=== PATIENT | female | born 1945 | race Caucasian/White ===

== ENCOUNTER 2021-01-16 13:00 | Inpatient (IN) ==
[~2021-01-16 13:00] MED LIST: ACETAMINOPHEN 325 MG TABLET PO PRN; CLOPIDOGREL 300 MG TABLET ONE; DEXTROSE 50% 25 GM/50 ML VIAL IV PRN; EPTIFIBATIDE 75 MG/100 ML BOTTLE IV ONE; GLUCAGON 1 MG VIAL IM PRN; HEPARIN 5,000 UNIT/1 ML VIAL ONE; HEPARIN/NACL 0.9% 2 UNITS/ML 1,000 UNIT/500 ML BAG IV ONE; LIDOCAINE 1% 20 ML VIAL ONE; MIDAZOLAM 2 MG/2 ML VIAL ONE; MORPHINE 2 MG/1 ML SYRINGE IV PRN; ONDANSETRON 4 MG/2 ML VIAL IV PRN; fentaNYL 100 MCG/2 ML VIAL ONE
[2021-01-16] MEDS ORDERED: NITROPRUSSIDE 50 MG/2 ML VIAL ONE (13:02)
[2021-01-16] MEDS ORDERED: HYDROmorphone 2 MG/1 ML VIAL ONE (13:12)
[2021-01-16] MEDS ORDERED: NALOXONE 0.4 MG/ML VIAL ONE (13:22)
[2021-01-16] MEDS ORDERED: ROCURONIUM 100 MG/10 ML VIAL IV ONE (13:39)
[2021-01-16] MEDS ORDERED: HEPARIN/NACL 0.9% 2 UNITS/ML 1,000 UNIT/500 ML BAG IV ONE (13:44)
[2021-01-16] MEDS ORDERED: NOREPINEPHRINE 4 MG/4 ML VIAL IV ONE (14:04)
[2021-01-16 14:35] LABS: Basophils # 0.1 10*3/uL (0.0-0.2); Basophils % 0.4 % (0.0-0.8); Eosinophils # 0.2 10*3/uL (0.0-0.87); Eosinophils % 1.2 % (0.00-10.9); Hematocrit 34.2 VOL% (35.7-47.0); Hemoglobin 10.7 GM/DL (12.0-16.0); Immature Granulocytes % 0.7 %; Immature Granulocytes Absolute 0.09 #; Lymphocytes # 1.6 10*3/uL (1.4-4.0); Lymphocytes % 11.5 % (21.3-54.2); Mean Corpuscular HGB Conc 31.3 GM/DL (32-36); Mean Corpuscular Volume 102.4 FL (87-102); Mean Platelet Volume 10.7 FL (9.6-12.0); Monocytes % 4.7 % (1.7-12.7); Neutrophils % 81.5 % (38.7-73.9); Platelet Count 200 T/CUMM (130-400); Red Blood Count 3.34 MC/CUMM (3.8-5.5); Red Cell Distribution Width 12.6 % (9.3-17.3); White Blood Count 13.8 T/CUMM (4-12)
[2021-01-16] MEDS ORDERED: AMIODARONE 150 MG/3 ML VIAL ONE (14:57)
[2021-01-16] MEDS ORDERED: EPTIFIBATIDE 75 MG/100 ML BOTTLE IV SCH (15:00)
[2021-01-16 15:09] LABS: Alanine Aminotransferase 16 U/L (13-56); Albumin 2.6 G/DL (3.4-5.0); Alkaline Phosphatase 67 U/L (45-117); Aspartate Amino Transferase 24 U/L (0-37); Bilirubin,Total < 0.39 MG/DL (0.20-1.00); Blood Urea Nitrogen 28 MG/DL (7-18); Carbon Dioxide 19 MMOL/L (21-32); Glucose 188 MG/DL (74-106); Osmolality,Calculated 278.2 MOS/KG (273-304); Potassium 4.1 MMOL/L (3.5-5.1); Sodium 134 MMOL/L (136-145); Total Protein 5.6 G/DL (6.4-8.2)
[2021-01-16 15:12] LABS: Estimated Glom Filtration Rate 0 ML/MIN
[2021-01-16] MEDS ORDERED: HEPARIN/NACL 0.9% 2 UNITS/ML 2,000 UNIT/1,000 ML BAG IV ONE (16:06)
[2021-01-16] MEDS ORDERED: LIDOCAINE 1% 20 ML VIAL ONE (16:07)
[2021-01-16] MEDS: EPTIFIBATIDE 75 MG/100 ML BOTTLE IV SCH ×2 (16:17→22:43)
[2021-01-16] MEDS ORDERED: INSULIN REGULAR 100 UNIT/ML SUBCUT SCH (16:30)
[2021-01-16] MEDS ORDERED: guaiFENesin/DM ER 600-30 MG TABLET PO PRN (16:40)
[2021-01-16] MEDS ORDERED: MAGNESIUM SULF RIDER 2 GM/50 ML PREMIX IV PRN (16:40)
[2021-01-16] MEDS ORDERED: hydrALAZINE 20 MG/1 ML VIAL IV PRN (16:40)
[2021-01-16] MEDS ORDERED: DOCUSATE SODIUM 100 MG CAPSULE PO PRN (16:40)
[2021-01-16] MEDS ORDERED: PROMETHAZINE 25 MG TABLET PO PRN (16:40)
[2021-01-16] MEDS ORDERED: ZALEPLON 5 MG CAPSULE PO PRN (16:40)
[2021-01-16] MEDS ORDERED: diphenhydrAMINE CAP 25 MG CAPSULE PO PRN (16:40)
[2021-01-16] MEDS ORDERED: MAGNESIUM SULF RIDER 4 GM/100 ML PREMIX IV PRN (16:40)
[2021-01-16] MEDS ORDERED: ALUMINUM/MAGNES/SIMETH MAX STR 30 ML UDCUP PO PRN (16:40)
[2021-01-16] MEDS ORDERED: HEPARIN/NACL 0.9% 2 UNITS/ML 1,000 UNIT/500 ML BAG IV SCH (17:00)
[2021-01-16 17:42] LABS: ABG Base Excess -7.8 MMOL/L (-2.5-2.5); ABG HCO3 18.2 MMOL/L (20-26); ABG Oxygen Saturation 99.9 % (95-100); ABG PCO2 30.4 MM HG (35-48); ABG PH 7.349 (7.35-7.45); ABG TCO2 14.8 MMOL/L (23-27); Pt O2 Delivery Device Ventilator
[2021-01-16] MEDS: SODIUM CHLORIDE 0.45% 1,000 ML IV SCH ×2 (19:45→20:17)
[2021-01-16] MEDS: PANTOPRAZOLE 40 MG TABLET PO SCH (19:46)
[2021-01-16] MEDS ORDERED: NITROGLYCERIN DRIP 50 MG/250 ML BOTTLE IV PRN (19:50)
[2021-01-16] MEDS ORDERED: DEXTROSE 50% 25 GM/50 ML VIAL IV PRN (23:57)
[2021-01-17 02:19] LABS: ABG Base Excess -4.7 MMOL/L (-2.5-2.5); ABG HCO3 19.3 MMOL/L (20-26); ABG Oxygen Saturation 97.5 % (95-100); ABG PCO2 32.3 MM HG (35-48); ABG PH 7.394 (7.35-7.45); ABG PO2 96.2 MM HG (80-95); ABG TCO2 20.3 MMOL/L (23-27)
[2021-01-17 05:47] LABS: Basophils % 0.1 % (0.0-0.8); Hematocrit 38.3 VOL% (35.7-47.0); Immature Granulocytes % 0.8 %; Immature Granulocytes Absolute 0.14 #; Lymphocytes # 1.3 10*3/uL (1.4-4.0); Lymphocytes % 7.3 % (21.3-54.2); Mean Corpuscular HGB Conc 31.3 GM/DL (32-36); Mean Platelet Volume 11.1 FL (9.6-12.0); Neutrophils % 87.8 % (38.7-73.9); Platelet Count 253 T/CUMM (130-400); Red Blood Count 3.72 MC/CUMM (3.8-5.5); White Blood Count 17.2 T/CUMM (4-12)
[2021-01-17 06:12] LABS: Calcium 8.7 MG/DL (8.5-10.1); Osmolality,Calculated 287.7 MOS/KG (273-304); Potassium 4.6 MMOL/L (3.5-5.1); Risk Ratio 3.54; Thyroid Stimulating Hormone 0.672 uIU/ml (0.358-3.74); VLDL Cholesterol 26.4 MG/DL
[2021-01-17] MEDS: SODIUM CHLORIDE 0.45% 1,000 ML IV SCH ×2 (07:46→23:30)
[2021-01-17] MEDS: TICAGRELOR 90 MG TABLET PO SCH ×2 (09:28→21:33)
[2021-01-17] MEDS: ASPIRIN CHEW 81 MG TABLET PO SCH (09:28)
[2021-01-17] MEDS: INSULIN REGULAR 100 UNIT/ML SUBCUT SCH ×4 (09:35→21:33)
[2021-01-17] MEDS: PANTOPRAZOLE 40 MG TABLET PO SCH (09:39)
[2021-01-17] MEDS ORDERED: TICAGRELOR 90 MG TABLET PO ONE (10:02)
[2021-01-17 13:33] LABS: Bilirubin,Urine Negative (Negative); Blood, Urine Moderate mg/dL (Negative); Glucose,Urine (UA) >=500 mg/dL (Negative); Ketones,Urine Negative (Negative); Mucus,Urine Occasional /LPF (Occasional); Nitrite,Urine Negative (Negative); Protein,Urine 30 MG/DL; RBC,Urine 3 /HPF (0-4); Urine Appearance CLEAR (Clear); Urine Color Yellow (Yellow); Urine Specific Gravity > 1.060 (1.001-1.035); Urine Urobilinogen < 2.0 EU/DL (0.2-1.0)
[2021-01-17] MEDS ORDERED: SODIUM CHLORIDE 0.9% 1,000 ML IV ONE (16:09)
[2021-01-17] MEDS: HEPARIN DRIP 25,000 UNITS/500 ML PREMIX IV SCH (16:54)
[2021-01-17] MEDS ORDERED: LORazepam 2 MG/1 ML VIAL IV ONE (21:03)
[2021-01-17] MEDS ORDERED: LORazepam 2 MG/1 ML VIAL ONE (21:05)
[2021-01-17] MEDS: ROSUVASTATIN 20 MG TABLET PO SCH (21:33)
[2021-01-17] MEDS: INSULIN GLARGINE 100 UNIT/ML SUBCUT SCH (21:33)
[2021-01-18 01:06] LABS: Basophils % 0.2 % (0.0-0.8); Hematocrit 35.3 VOL% (35.7-47.0); Hemoglobin 11.3 GM/DL (12.0-16.0); Immature Granulocytes % 1.7 %; Immature Granulocytes Absolute 0.37 #; Lymphocytes # 2.3 10*3/uL (1.4-4.0); Lymphocytes % 10.5 % (21.3-54.2); Mean Platelet Volume 11.3 FL (9.6-12.0); Monocytes % 7.3 % (1.7-12.7); Neutrophils % 80.3 % (38.7-73.9); Platelet Count 224 T/CUMM (130-400); Red Blood Count 3.53 MC/CUMM (3.8-5.5); Red Cell Distribution Width 13.2 % (9.3-17.3)
[2021-01-18 01:25] LABS: Albumin 3.3 G/DL (3.4-5.0); Bilirubin,Total 0.9 MG/DL (0.20-1.00); Calcium 8.6 MG/DL (8.5-10.1); Osmolality,Calculated 285.8 MOS/KG (273-304); Total Protein 6.4 G/DL (6.4-8.2)
[2021-01-18 03:41] LABS: Lymphocytes 11 % (20-55); Platelet Estimate Normal; Segmented Neutrophils 81 % (50-85); Total Cells Counted 100
[2021-01-18 03:42] LABS: Macrocytosis Slight; Polychromasia Slight
[2021-01-18 05:57] LABS: Folate 6.33 NG/ML (5.38-24.0)
[2021-01-18] MEDS: INSULIN REGULAR 100 UNIT/ML SUBCUT SCH ×4 (08:00→20:16)
[2021-01-18] MEDS: PANTOPRAZOLE 40 MG TABLET PO SCH ×2 (08:58→10:30)
[2021-01-18] MEDS: SODIUM CHLORIDE 0.45% 1,000 ML IV SCH ×3 (08:58→22:22)
[2021-01-18] MEDS: ASPIRIN CHEW 81 MG TABLET PO SCH ×2 (08:58→10:30)
[2021-01-18] MEDS: TICAGRELOR 90 MG TABLET PO SCH ×3 (08:58→20:16)
[2021-01-18] MEDS ORDERED: LORazepam 2 MG/1 ML VIAL IV PRN (10:41)
[2021-01-18] MEDS: HEPARIN DRIP 25,000 UNITS/500 ML PREMIX IV SCH ×2 (11:12→18:27)
[2021-01-18] MEDS: MEROPENEM 500 MG in SODIUM CHLORIDE 0.9% 100 ML IV SCH ×2 (11:46→18:17)
[2021-01-18 12:13] LABS: Bilirubin,Urine Negative (Negative); Blood, Urine Large mg/dL (Negative); Glucose,Urine (UA) >=500 mg/dL (Negative); Ketones,Urine Negative (Negative); Nitrite,Urine Negative (Negative); Protein,Urine 30 MG/DL; RBC,Urine 230 /HPF (0-4); Squamous Epithelial Cell,Urine Occasional /HPF (0-10); Urine Appearance Slightly Hazy (Clear); Urine Color Yellow (Yellow); Urine Specific Gravity 1.029 (1.001-1.035); Urine Urobilinogen < 2.0 EU/DL (0.2-1.0)
[2021-01-18] MEDS: ROSUVASTATIN 20 MG TABLET PO SCH (20:16)
[2021-01-18] MEDS: INSULIN GLARGINE 100 UNIT/ML SUBCUT SCH (20:17)
[2021-01-19 01:02] LABS: Calcium 8.2 MG/DL (8.5-10.1); Osmolality,Calculated 283.8 MOS/KG (273-304); Potassium 3.6 MMOL/L (3.5-5.1)
[2021-01-19 01:29] LABS: Basophils # 0.1 10*3/uL (0.0-0.2); Basophils % 0.3 % (0.0-0.8); Eosinophils # 0.1 10*3/uL (0.0-0.87); Eosinophils % 0.3 % (0.00-10.9); Hematocrit 31.1 VOL% (35.7-47.0); Immature Granulocytes % 1.3 %; Immature Granulocytes Absolute 0.24 #; Lymphocytes # 2.4 10*3/uL (1.4-4.0); Lymphocytes % 13.1 % (21.3-54.2); Mean Corpuscular HGB Conc 32.2 GM/DL (32-36); Mean Platelet Volume 11.5 FL (9.6-12.0); Monocytes % 9.2 % (1.7-12.7); Neutrophils % 75.8 % (38.7-73.9); Platelet Count 191 T/CUMM (130-400); Red Blood Count 3.11 MC/CUMM (3.8-5.5); Red Cell Distribution Width 13.2 % (9.3-17.3); White Blood Count 18.5 T/CUMM (4-12)
[2021-01-19] MEDS: MEROPENEM 500 MG in SODIUM CHLORIDE 0.9% 100 ML IV SCH ×3 (02:27→18:35)
[2021-01-19 03:09] LABS: PT Patient Result 11.1 SECS (10.5-12.0); Partial Thromboplastin Time 54.7 SECS (23.9-33.8)
[2021-01-19] MEDS: SODIUM CHLORIDE 0.45% 1,000 ML IV SCH (03:52)
[2021-01-19] MEDS ORDERED: FUROSEMIDE 20 MG/2 ML VIAL IV ONE (07:33)
[2021-01-19] MEDS: INSULIN REGULAR 100 UNIT/ML SUBCUT SCH ×4 (08:50→20:25)
[2021-01-19] MEDS: TICAGRELOR 90 MG TABLET PO SCH ×2 (08:51→20:30)
[2021-01-19] MEDS: PANTOPRAZOLE 40 MG TABLET PO SCH (08:51)
[2021-01-19] MEDS: ASPIRIN CHEW 81 MG TABLET PO SCH (08:51)
[2021-01-19] MEDS: HEPARIN DRIP 25,000 UNITS/500 ML PREMIX IV SCH ×2 (08:53→18:58)
[2021-01-19] MEDS: INSULIN GLARGINE 100 UNIT/ML SUBCUT SCH (20:27)
[2021-01-19] MEDS: ROSUVASTATIN 20 MG TABLET PO SCH (20:30)
[2021-01-20] MEDS: HEPARIN DRIP 25,000 UNITS/500 ML PREMIX IV SCH ×2 (01:25→18:09)
[2021-01-20] MEDS: MEROPENEM 500 MG in SODIUM CHLORIDE 0.9% 100 ML IV SCH ×3 (03:13→18:02)
[2021-01-20 08:13] LABS: Basophils # 0.1 10*3/uL (0.0-0.2); Basophils % 0.3 % (0.0-0.8); Eosinophils # 0.1 10*3/uL (0.0-0.87); Eosinophils % 0.9 % (0.00-10.9); Hematocrit 33.7 VOL% (35.7-47.0); Hemoglobin 10.7 GM/DL (12.0-16.0); Immature Granulocytes Absolute 0.16 #; Lymphocytes # 1.6 10*3/uL (1.4-4.0); Lymphocytes % 9.7 % (21.3-54.2); Mean Corpuscular HGB Conc 31.8 GM/DL (32-36); Mean Corpuscular Volume 101.2 FL (87-102); Mean Platelet Volume 11.5 FL (9.6-12.0); Monocytes % 9.2 % (1.7-12.7); NRBC # 0.02 10*3/uL; Neutrophils % 78.9 % (38.7-73.9); Platelet Count 205 T/CUMM (130-400); Red Blood Count 3.33 MC/CUMM (3.8-5.5); Red Cell Distribution Width 13.2 % (9.3-17.3); White Blood Count 16.1 T/CUMM (4-12)
[2021-01-20] MEDS: TICAGRELOR 90 MG TABLET PO SCH ×2 (08:22→20:43)
[2021-01-20] MEDS: PANTOPRAZOLE 40 MG TABLET PO SCH (08:22)
[2021-01-20] MEDS: ASPIRIN CHEW 81 MG TABLET PO SCH (08:22)
[2021-01-20 08:29] LABS: Calcium 8.4 MG/DL (8.5-10.1); Osmolality,Calculated 286.4 MOS/KG (273-304); Potassium 3.6 MMOL/L (3.5-5.1)
[2021-01-20] MEDS: INSULIN REGULAR 100 UNIT/ML SUBCUT SCH ×4 (08:34→20:35)
[2021-01-20] MEDS ORDERED: POTASSIUM CHLORIDE 20 MEQ TABLET PO ONE (09:42)
[2021-01-20] MEDS: METOPROLOL TARTRATE 25 MG TABLET PO SCH ×2 (10:13→20:43)
[2021-01-20 16:15] LABS: Bacteria,Urine Occasional /HPF (Few); Bilirubin,Urine Negative (Negative); Blood, Urine Large mg/dL (Negative); Glucose,Urine (UA) >=500 mg/dL (Negative); Ketones,Urine Negative (Negative); Mucus,Urine Occasional /LPF (Occasional); Nitrite,Urine Negative (Negative); Protein,Urine 30 MG/DL; RBC,Urine 35 /HPF (0-4); Squamous Epithelial Cell,Urine Occasional /HPF (0-10); Urine Appearance CLEAR (Clear); Urine Color Amber (Yellow); Urine Specific Gravity 1.022 (1.001-1.035)
[2021-01-20] MEDS: INSULIN GLARGINE 100 UNIT/ML SUBCUT SCH (20:43)
[2021-01-20] MEDS: ROSUVASTATIN 20 MG TABLET PO SCH (20:43)
[2021-01-20] MEDS ORDERED: QUEtiapine 25 MG TABLET PO SCH (21:00)
[2021-01-21] MEDS: MEROPENEM 500 MG in SODIUM CHLORIDE 0.9% 100 ML IV SCH ×3 (01:56→17:50)
[2021-01-21 06:47] LABS: Basophils # 0.1 10*3/uL (0.0-0.2); Basophils % 0.4 % (0.0-0.8); Eosinophils # 0.3 10*3/uL (0.0-0.87); Eosinophils % 2.4 % (0.00-10.9); Hematocrit 29.4 VOL% (35.7-47.0); Hemoglobin 9.6 GM/DL (12.0-16.0); Immature Granulocytes % 0.9 %; Immature Granulocytes Absolute 0.11 #; Lymphocytes # 1.4 10*3/uL (1.4-4.0); Lymphocytes % 11.9 % (21.3-54.2); Mean Corpuscular HGB Conc 32.7 GM/DL (32-36); Mean Platelet Volume 11.7 FL (9.6-12.0); Monocytes % 10.2 % (1.7-12.7); Neutrophils % 74.2 % (38.7-73.9); Platelet Count 192 T/CUMM (130-400); Red Blood Count 2.91 MC/CUMM (3.8-5.5); Red Cell Distribution Width 13.4 % (9.3-17.3); White Blood Count 12.1 T/CUMM (4-12)
[2021-01-21 07:22] LABS: Calcium 8.3 MG/DL (8.5-10.1); Osmolality,Calculated 283.7 MOS/KG (273-304); Potassium 3.7 MMOL/L (3.5-5.1)
[2021-01-21] MEDS ORDERED: FUROSEMIDE 40 MG/4 ML VIAL IV SCH (08:00)
[2021-01-21] MEDS: INSULIN REGULAR 100 UNIT/ML SUBCUT SCH ×4 (08:01→21:20)
[2021-01-21] MEDS ORDERED: POTASSIUM CHLORIDE 20 MEQ TABLET PO PRN (08:02)
[2021-01-21] MEDS: METOPROLOL TARTRATE 25 MG TABLET PO SCH ×2 (08:05→21:20)
[2021-01-21] MEDS: TICAGRELOR 90 MG TABLET PO SCH ×2 (08:05→21:20)
[2021-01-21] MEDS: ASPIRIN CHEW 81 MG TABLET PO SCH (08:05)
[2021-01-21] MEDS: PANTOPRAZOLE 40 MG TABLET PO SCH (08:05)
[2021-01-21] MEDS: APIXABAN 5 MG TABLET PO SCH ×2 (09:37→21:20)
[2021-01-21] MEDS: SODIUM CHLORIDE 0.9% 1,000 ML IV SCH (11:30)
[2021-01-21] MEDS ORDERED: ALBUTEROL/IPRATROPIUM 3 ML NEB RESP TX PRN (16:07)
[2021-01-21] MEDS ORDERED: QUEtiapine 25 MG TABLET PO SCH (21:00)
[2021-01-21] MEDS: INSULIN GLARGINE 100 UNIT/ML SUBCUT SCH (21:20)
[2021-01-21] MEDS: ROSUVASTATIN 20 MG TABLET PO SCH (21:20)
[2021-01-22] MEDS: MEROPENEM 500 MG in SODIUM CHLORIDE 0.9% 100 ML IV SCH ×3 (03:23→18:14)
[2021-01-22 05:48] LABS: Basophils % 0.3 % (0.0-0.8); Eosinophils # 0.4 10*3/uL (0.0-0.87); Eosinophils % 3.2 % (0.00-10.9); Hematocrit 32.2 VOL% (35.7-47.0); Hemoglobin 9.9 GM/DL (12.0-16.0); Immature Granulocytes Absolute 0.12 #; Lymphocytes # 1.3 10*3/uL (1.4-4.0); Lymphocytes % 10.6 % (21.3-54.2); Mean Corpuscular HGB Conc 30.7 GM/DL (32-36); Mean Corpuscular Volume 104.2 FL (87-102); Neutrophils % 75.9 % (38.7-73.9); Platelet Count 164 T/CUMM (130-400); Red Blood Count 3.09 MC/CUMM (3.8-5.5); Red Cell Distribution Width 13.4 % (9.3-17.3); White Blood Count 12.1 T/CUMM (4-12)
[2021-01-22 06:21] LABS: Calcium 8.4 MG/DL (8.5-10.1); Osmolality,Calculated 288.3 MOS/KG (273-304); Potassium 3.9 MMOL/L (3.5-5.1)
[2021-01-22] MEDS: SODIUM CHLORIDE 0.9% 1,000 ML IV SCH (06:21)
[2021-01-22] MEDS: APIXABAN 5 MG TABLET PO SCH ×2 (08:49→21:53)
[2021-01-22] MEDS: ASPIRIN CHEW 81 MG TABLET PO SCH (08:49)
[2021-01-22] MEDS: TICAGRELOR 90 MG TABLET PO SCH ×2 (08:49→21:53)
[2021-01-22] MEDS: METOPROLOL TARTRATE 25 MG TABLET PO SCH ×2 (08:49→21:53)
[2021-01-22] MEDS: PANTOPRAZOLE 40 MG TABLET PO SCH (08:49)
[2021-01-22] MEDS: INSULIN REGULAR 100 UNIT/ML SUBCUT SCH ×4 (09:20→21:44)
[2021-01-22 18:46] LABS: Bacteria,Urine Occasional /HPF (Few); Bilirubin,Urine Negative (Negative); Blood, Urine Large mg/dL (Negative); Glucose,Urine (UA) Negative (Negative); Ketones,Urine Negative (Negative); Mucus,Urine Occasional /LPF (Occasional); Nitrite,Urine Negative (Negative); Protein,Urine 30 MG/DL; RBC,Urine 44 /HPF (0-4); Squamous Epithelial Cell,Urine Occasional /HPF (0-10); Urine Appearance CLEAR (Clear); Urine Color Yellow (Yellow); Urine Specific Gravity 1.011 (1.001-1.035)
[2021-01-22] MEDS: INSULIN GLARGINE 100 UNIT/ML SUBCUT SCH (21:44)
[2021-01-22] MEDS: ROSUVASTATIN 20 MG TABLET PO SCH (21:53)
[2021-01-23] MEDS: MEROPENEM 500 MG in SODIUM CHLORIDE 0.9% 100 ML IV SCH ×3 (01:55→17:36)
[2021-01-23] MEDS: SODIUM CHLORIDE 0.9% 1,000 ML IV SCH ×2 (03:04→05:00)
[2021-01-23] MEDS: INSULIN REGULAR 100 UNIT/ML SUBCUT SCH ×4 (09:27→20:39)
[2021-01-23] MEDS: METOPROLOL TARTRATE 25 MG TABLET PO SCH ×2 (09:28→20:52)
[2021-01-23] MEDS: PANTOPRAZOLE 40 MG TABLET PO SCH (09:28)
[2021-01-23] MEDS: TICAGRELOR 90 MG TABLET PO SCH ×2 (09:28→20:52)
[2021-01-23] MEDS: ASPIRIN CHEW 81 MG TABLET PO SCH (09:28)
[2021-01-23] MEDS: APIXABAN 5 MG TABLET PO SCH ×2 (09:28→20:38)
[2021-01-23 12:32] LABS: Basophils % 0.3 % (0.0-0.8); Eosinophils # 0.4 10*3/uL (0.0-0.87); Eosinophils % 3.4 % (0.00-10.9); Hematocrit 33.8 VOL% (35.7-47.0); Hemoglobin 10.9 GM/DL (12.0-16.0); Immature Granulocytes % 0.8 %; Immature Granulocytes Absolute 0.11 #; Lymphocytes # 1.7 10*3/uL (1.4-4.0); Lymphocytes % 12.8 % (21.3-54.2); Mean Corpuscular HGB Conc 32.2 GM/DL (32-36); Mean Corpuscular Volume 100.6 FL (87-102); Mean Platelet Volume 11.2 FL (9.6-12.0); Monocytes % 8.1 % (1.7-12.7); Neutrophils % 74.6 % (38.7-73.9); Platelet Count 234 T/CUMM (130-400); Red Blood Count 3.36 MC/CUMM (3.8-5.5); Red Cell Distribution Width 13.1 % (9.3-17.3)
[2021-01-23 12:52] LABS: Calcium 8.8 MG/DL (8.5-10.1); Osmolality,Calculated 281.5 MOS/KG (273-304); Potassium 4.4 MMOL/L (3.5-5.1)
[2021-01-23] MEDS ORDERED: FUROSEMIDE 40 MG/4 ML VIAL IV ONE (16:31)
[2021-01-23] MEDS: INSULIN GLARGINE 100 UNIT/ML SUBCUT SCH (20:41)
[2021-01-23] MEDS: ROSUVASTATIN 20 MG TABLET PO SCH (20:52)
[2021-01-24] MEDS: MANNITOL IV SCH ×3 (00:20→17:07)
[2021-01-24] MEDS: MEROPENEM 500 MG in SODIUM CHLORIDE 0.9% 100 ML IV SCH ×3 (01:26→18:29)
[2021-01-24 06:15] LABS: Basophils # 0.1 10*3/uL (0.0-0.2); Basophils % 0.4 % (0.0-0.8); Eosinophils # 0.4 10*3/uL (0.0-0.87); Eosinophils % 3.1 % (0.00-10.9); Hematocrit 31.4 VOL% (35.7-47.0); Hemoglobin 9.9 GM/DL (12.0-16.0); Immature Granulocytes % 0.7 %; Immature Granulocytes Absolute 0.08 #; Lymphocytes # 1.4 10*3/uL (1.4-4.0); Lymphocytes % 11.8 % (21.3-54.2); Mean Corpuscular HGB Conc 31.5 GM/DL (32-36); Mean Platelet Volume 11.6 FL (9.6-12.0); Monocytes % 8.2 % (1.7-12.7); Neutrophils % 75.8 % (38.7-73.9); Platelet Count 220 T/CUMM (130-400); Red Blood Count 3.14 MC/CUMM (3.8-5.5); Red Cell Distribution Width 13.1 % (9.3-17.3); White Blood Count 11.7 T/CUMM (4-12)
[2021-01-24 06:32] LABS: Calcium 8.3 MG/DL (8.5-10.1); Osmolality,Calculated 281.7 MOS/KG (273-304); Potassium 4.1 MMOL/L (3.5-5.1)
[2021-01-24] MEDS: INSULIN REGULAR 100 UNIT/ML SUBCUT SCH ×4 (08:30→21:25)
[2021-01-24] MEDS: METOPROLOL TARTRATE 25 MG TABLET PO SCH ×3 (09:10→21:22)
[2021-01-24] MEDS: PANTOPRAZOLE 40 MG TABLET PO SCH (09:10)
[2021-01-24] MEDS: APIXABAN 5 MG TABLET PO SCH (09:51)
[2021-01-24] MEDS: ASPIRIN CHEW 81 MG TABLET PO SCH (09:55)
[2021-01-24] MEDS: TICAGRELOR 90 MG TABLET PO SCH ×2 (09:55→21:22)
[2021-01-24] MEDS: ROSUVASTATIN 20 MG TABLET PO SCH (21:22)
[2021-01-24] MEDS: INSULIN GLARGINE 100 UNIT/ML SUBCUT SCH (21:24)
[2021-01-25] MEDS: MEROPENEM 500 MG in SODIUM CHLORIDE 0.9% 100 ML IV SCH ×3 (03:35→18:53)
[2021-01-25] MEDS: INSULIN REGULAR 100 UNIT/ML SUBCUT SCH ×3 (08:09→15:40)
[2021-01-25] MEDS: METOPROLOL TARTRATE 25 MG TABLET PO SCH (09:35)
[2021-01-25] MEDS: ASPIRIN CHEW 81 MG TABLET PO SCH (09:35)
[2021-01-25] MEDS: PANTOPRAZOLE 40 MG TABLET PO SCH (09:35)
[2021-01-25] MEDS: TICAGRELOR 90 MG TABLET PO SCH ×2 (09:35→21:49)
[2021-01-25] MEDS ORDERED: amLODIPine 2.5 MG TABLET PO ONE (11:29)
[2021-01-25] MEDS: ROSUVASTATIN 20 MG TABLET PO SCH (21:49)
[2021-01-25] MEDS: carvediloL 3.125 MG TABLET PO SCH (21:49)
[2021-01-25] MEDS: LORazepam 1 MG TABLET PO SCH (21:54)
[2021-01-26] MEDS: INSULIN GLARGINE 100 UNIT/ML SUBCUT SCH ×2 (06:03→21:34)
[2021-01-26] MEDS: INSULIN REGULAR 100 UNIT/ML SUBCUT SCH ×5 (06:03→21:35)
[2021-01-26] MEDS: carvediloL 3.125 MG TABLET PO SCH ×2 (10:00→21:33)
[2021-01-26] MEDS: TICAGRELOR 90 MG TABLET PO SCH ×2 (10:00→21:33)
[2021-01-26] MEDS: PANTOPRAZOLE 40 MG TABLET PO SCH (10:00)
[2021-01-26] MEDS: ASPIRIN CHEW 81 MG TABLET PO SCH (10:00)
[2021-01-26] MEDS: LOSARTAN 25 MG TABLET PO SCH (10:00)
[2021-01-26] MEDS: LORazepam 1 MG TABLET PO SCH (21:32)
[2021-01-26] MEDS: ROSUVASTATIN 20 MG TABLET PO SCH (21:33)
[2021-01-27 08:16] LABS: Basophils # 0.1 10*3/uL (0.0-0.2); Basophils % 0.4 % (0.0-0.8); Eosinophils # 0.3 10*3/uL (0.0-0.87); Eosinophils % 2.6 % (0.00-10.9); Hematocrit 32.4 VOL% (35.7-47.0); Hemoglobin 10.1 GM/DL (12.0-16.0); Immature Granulocytes % 0.5 %; Immature Granulocytes Absolute 0.06 #; Lymphocytes # 1.5 10*3/uL (1.4-4.0); Lymphocytes % 13.4 % (21.3-54.2); Mean Corpuscular HGB Conc 31.2 GM/DL (32-36); Mean Corpuscular Volume 100.9 FL (87-102); Mean Platelet Volume 11.2 FL (9.6-12.0); Monocytes % 8.6 % (1.7-12.7); Neutrophils % 74.5 % (38.7-73.9); Platelet Count 243 T/CUMM (130-400); Red Blood Count 3.21 MC/CUMM (3.8-5.5); Red Cell Distribution Width 12.9 % (9.3-17.3); White Blood Count 11.4 T/CUMM (4-12)
[2021-01-27 08:40] LABS: Calcium 8.6 MG/DL (8.5-10.1); Osmolality,Calculated 283.4 MOS/KG (273-304); Potassium 3.9 MMOL/L (3.5-5.1)
[2021-01-27] MEDS: ASPIRIN CHEW 81 MG TABLET PO SCH (12:29)
[2021-01-27] MEDS: carvediloL 3.125 MG TABLET PO SCH (12:29)
[2021-01-27] MEDS: TICAGRELOR 90 MG TABLET PO SCH (12:30)
[2021-01-27] MEDS: LOSARTAN 25 MG TABLET PO SCH (12:30)
[2021-01-27] MEDS: PANTOPRAZOLE 40 MG TABLET PO SCH (12:30)
[2021-01-27 12:33] VITALS: BP 133/83
[2021-01-27] MEDS: INSULIN REGULAR 100 UNIT/ML SUBCUT SCH (12:39)
== END 2021-01-27 15:46 | DRG 246 ==
LOC: N.CC 17:12 → N.ICU 01-20 03:05 → N.TELES 01-22 17:46
PROVIDERS: ADMIT Internal Medicine Cardiovascular Disease; ATTEND Internal Medicine Interventional Cardiology
PROC: CLCCHCL (ICD-10-PCS; 2021-01-16 13:15)